=== PATIENT | male | born 1970 | race Caucasian/White ===

== ENCOUNTER 2016-05-30 20:10 | Inpatient (IN) | payer SELFPAY ==
[~2016-05-30] VITALS: Ht 185.4 cm; Wt 73.6 kg
--- NOTE | 2016-05-30 20:15 | NUR ---
PT REPORTS BEING FROM [facility]. PT STATES "I RAN OUT OF [employer] AND HAVE NO INSURANCE OR DOCTOR AT THIS TIME."
--- NOTE | 2016-05-30 20:16 | NUR ---
PILAR JOHNSON ATTEMPTED IV START X 3 WITHOUT SUCCESS.
[2016-05-30] MEDS ORDERED: INSU100V2 SC (21:01)
[2016-05-30] MEDS ORDERED: INSU100V32 SC (21:03)
[2016-05-30] MEDS ORDERED: RANI150T15 PO (21:04)
[2016-05-30] MEDS ORDERED: SODIUM CHLORIDE FLUSH 10 ML SYR IV PRN (21:10)
[2016-05-30] MEDS ORDERED: SODIUM CHLORIDE FLUSH 3 ML SYR IV PRN (21:10)
[2016-05-30 21:45] LABS: BASOPHILS % (AUTO) 1 % (0-2); EOSINOPHILS # (AUTO) 0.1 10^3uL; EOSINOPHILS % (AUTO) 1 % (0-4); LYMPHOCYTES # (AUTO) 2.7 X10^3; MEAN CORPUSCULAR HEMOGLOBIN 29.7 PG (26.0-34.0); MEAN CORPUSCULAR VOLUME 83 FL (80-100); MEAN PLATELET VOLUME 9.7 FL (6.0-9.5); MONOCYTES # (AUTO) 0.7 X10^3; MONOCYTES % (AUTO) 5 % (3-11); NEUTROPHILS # (AUTO) 9.1 X10^3; NEUTROPHILS % (AUTO) 72 % (51-67); PLATELET COUNT 397 10^3uL (150-450); WHITE BLOOD COUNT 12.71 10^3uL (4.0-11.0)
[2016-05-30 21:49] LABS: MEAN CORPUSCULAR HGB CONC 35.9 g/dL (31.0-37.0)
[2016-05-30 21:51] LABS: ALBUMIN 4.5 g/dL (3.4-5.0); ANION GAP 25.2 MEQ/L (3-15); CALCULATED IONIZED CALCIUM 4.2 mg/dL (3.8-4.6); TOTAL PROTEIN 8.1 g/dL (6.4-8.5)
[2016-05-30] MEDS ORDERED: HYDROmorphone 1 MG/ML (DILAUDID) SYRINGE IV ONE (22:15)
[2016-05-30] MEDS ORDERED: ONDANSETRON 2 MG/ML (Z0FRAN) 2 ML VIAL IV ONE (22:15)
[2016-05-30 22:35] LABS: ABG OXYGEN SATURATION 98 % (95-98); ABG PCO2 29 mmHg (35-45); ABG PH 7.44 (7.35-7.45); ABG PO2 99 mmHg (80-105)
[2016-05-30] MEDS ORDERED: INSULIN REGULAR 1 UNIT/0.01 ML DOSE IV ONE (22:40)
--- NOTE | 2016-05-30 22:47 | History and Physical (E) ---
History & Physical PCP: None CC Hyperglycemia HPI Mr. Fry is a 46 year old, known diabetic who has presented to the ED tonight reporting that he is "in DKA." He has had diarrhea for 3 days and started nausea and vomiting today. The patient stated to the ED, that he ran out of his lantus about 2 days ago, however he has had his humalog. He did run out of testing strips this afternoon. He recently relocated from [place], [place] and is living her now. He came here because he has a friend here. He has lived here before. He had [employer] insurance that covered his insulin. He does not have a regular physician and endorses being without health insurance. He told the ED physician that he gets his medications refilled during ED visits. He states he has not been able to afford his insulin. Upon arrival to the floor, he is not in any distress. Discussed care and plan. Questions answered. PMH Type I DM CKD Prostate cancer Nephrolithiasis HTN--not treated currently DLD--not treated currently Anxiety--previously treated with clonazepam PSH Pyloric stenosis repair as a . Prostatectomy in [place] Dr. Fernandes. Ureteral stents placed. ALLERGIES: Codeine Pregabalin Please see list at end of report. HOME MEDICATIONS: Ranitidine Lantus--30 units BID Humalog--15 units with meals. Please see list at end of report. FH Parents--Father with CAD, HI in March, prostate cancer, and DM. Mother committed suicide about 6 years ago, psychiatric illness. Siblings--Brother with skin cancer. Children--Daughter who is in poor health with lupus and scoliosis. Son has heart issues and lung issues associated with pectus excavatum. SH Tobaccoism--Smoker for about 30 years. Alcohol use--None. Drug use--Marijuana occasionally. CODE STATUS Full code. ROS CONSTITUTION: Denies weight loss or gain. Endorses chills. HEENT: No change in vision or hearing. Endorses sore throat from emesis. CV: No chest pain or palpitations. PULM: No new cough, shortness of breath, difficulty breathing. GI: Nausea and vomiting per HPI. No blood in stool. : No dysuria. No blood in urine. MS: No new muscle or joint aches and pains. NEURO: Endorses peripheral neuropathy for years. INTEG: Chronic tinea infection to abdomen. ENDO: No heat or cold intolerance. Endorses polydipsia and polyuria over last 1- 2 days. HEME/LYMPH: No easy bruising or bleeding. No swollen glands. PSYCH: Endorses chronic anxiety. OBJECTIVE Vital Signs Date Time Temp Pulse Resp B/P Pulse Ox O2 Delivery O2 Flow Rate FiO2 05/30/16 20:22 98.9 124 18 122/85 99 Room Air GEN: Awake and alert. No distress. HEENT: Normocephalic. MMM in oral cavity. CV: Tachycardic rate. Regular rhythm. No murmurs appreciated. LUNGS: CTA B. NLR's. ABD: NBS. S/NTTP/ND. EXTR: No edema to lower extremities. NEURO: Speech clear. Moving all extremities without issue. LABS CBC BMP Last 24 Hrs 05/30/16 21:20 Laboratory Results Past 48 Hrs 05/30/16 21:20: Alanine Aminotransferase (ALT/SGPT) 178H, Albumin 4.5, Albumin/Globulin Ratio 1.250, Alkaline Phosphatase 221H, Anion Gap 25.2H, Aspartate Amino Transf (AST/ SGOT) 88H, BUN/Creatinine Ratio 22H, Basophils # (Auto) 0.1, Basophils (%) (Auto ) 1, Blood Urea Nitrogen 24H, Calcium Level 10.3, Calcium/Ionized Calcium Ratio 4.2, Calculated Osmolality 279L, Carbon Dioxide Level 17L, Chloride Level 93L, Creatinine 1.10, Eosinophils # (Auto) 0.1, Eosinophils (%) (Auto) 1, Estimat Glomerular Filtration Rate 87.2, Estimated GFR (Non- 72.1, Glucose Level 522*H, Hematocrit 45.10, Hemoglobin 16.2, Hemoglobin A1c 12.1H, Lymphocytes # (Auto) 2.7, Lymphocytes (%) (Auto) 21, Mean Corpuscular Hemoglobin 29.7, Mean Corpuscular Hemoglobin Concent 35.9, Mean Corpuscular Volume 83, Mean Platelet Volume 9.7H, Monocytes # (Auto) 0.7, Monocytes (%) ( Auto) 5, Neutrophils # (Auto) 9.1, Neutrophils (%) (Auto) 72H, Platelet Count 397, Potassium Level 5.7H, Red Blood Count 5.45, Red Cell Distribution Width 12.6, Sodium Level 130L, Total Bilirubin 1.1H, Total Protein 8.1, White Blood Count 12.71H 05/30/16 22:22: Shoaib Test pos, Arterial Blood Base Excess -4.0L, Arterial Blood HCO3 20.0L, Arterial Blood Oxygen Saturation 98, Arterial Blood Partial Pressure CO2 29L, Arterial Blood Partial Pressure O2 99, Arterial Blood Total CO2 21.0L, Arterial Blood pH 7.44, Blood Gas Puncture Site lra, FiO2 % 21.0 ASSESSMENT/PLAN SIRS Met with tachycardia and leukocytosis. Due to hyperglycemia. Hyperglycemia Due to running out of his insulin. Will provide an initial dose of IV insulin. Will monitor sugars closely and treat with SSI. IDDM Patient has been on lantus and meal time insulin. A1c pending. Monitoring accu cheks. Providing aggressive insulin. CKD Reportedly stage 3. Creatinine is normal here, monitor. HTN Has previously been on enalapril, not treated currently. Will restart. DLD Has previously been on a statin, not treated currently. Will restart. DVT proph Enoxaparin. FEN Diabetic diet as tolerated. Electrolytes--Mild hyperkalemia, pseudohyponatremia. Providing fluids, treating hyperglycemia. NS boluses being provided. Code status Full code. Dispo Inpatient for now. Treating sugars. Starting SUDHAKAR and statin therapy. Will look for resources on Thursday. Allergies/Home Medications Allergies: Coded Allergies: codeine (Verified Allergy, Unknown, Hives, 05/30/16) pregabalin (Verified Allergy, Unknown, Anaphylaxis, 05/30/16) Reported Home Medications Scheduled Insulin Glargine,Hum.rec.anlog (Lantus) 100 UNIT SC BID (Reported) Insulin Lispro (Humalog) 100 UNIT SC AC (Reported) Ranitidine HCl (Zantac) 150 MG PO UD (Reported) Copies to: End of Report . JONG MALDONADO MD May 30, 2016 22:47
[2016-05-30] MEDS ORDERED: GLUCAGON EMERGENCY 1 MG/KIT IM PRN (22:50)
[2016-05-30] MEDS ORDERED: ONDANSETRON 2 MG/ML (Z0FRAN) 2 ML VIAL IV PRN (22:50)
[2016-05-30] MEDS ORDERED: DEXTROSE 50% 25 GM/50 ML SYRINGE IV PRN (22:50)
[2016-05-30] MEDS ORDERED: DEXTROSE ORAL GEL (GLUTOSE 40%) 15 GM TUBE PO PRN (22:50)
[2016-05-30] MEDS ORDERED: ACETAMINOPHEN 325 MG TAB (TYLENOL) PO PRN (22:50)
--- NOTE | 2016-05-30 23:25 | NUR ---
Pt arrives to 318 via cart from ED. Ambulates independently to weight chair and bed. See admission assessment for further details.
[2016-05-30] MEDS: INSULIN LISPRO 1 UNIT/0.01 ML (HUMALOG) DOSE SC SCH (23:30)
[2016-05-30 23:33] LABS: BILIRUBIN,URINE Negative (Negative); CLARITY,URINE Clear; COLOR,URINE Yellow; GLUCOSE, URINE (UA) 2+ (Negative); LEUKOCYTE ESTERASE ,URINE Negative (Negative); PH,URINE 5.5 (5.0 - 8.0); UROBILINOGEN,URINE 0.2 mg/dL (0.2-1.0)
--- NOTE | 2016-05-30 23:45 | NUR ---
Dr Orozco in room; explains plan of care to patient. Pt denies n/v, requests food. Will provide.
[2016-05-31] VITALS: BP 110/79
[2016-05-31] MEDS: FAMOTIDINE 20 MG (PEPCID) TABLET PO SCH ×3 (00:11→21:10)
[2016-05-31 00:30] VITALS: BP 110/79
[2016-05-31] MEDS: INSULIN LISPRO 1 UNIT/0.01 ML (HUMALOG) DOSE SC SCH ×11 (00:33→21:00)
--- NOTE | 2016-05-31 04:39 | NUR ---
Pt c/o back pain. Offered pt PRN tylenol; pt states "no, that won't work." Informed pt that I would let the doctor know and see what we could do. Dr Orozco notified via text message.
--- NOTE | 2016-05-31 05:05 | NUR ---
Dr Orozco responds; orders received for lidoderm patch to back daily and tramadol PO q4h prn pain.
[2016-05-31] MEDS: LIDOCAINE (LIDODERM) 5% PATCH TOP SCH ×2 (05:10→08:48)
[2016-05-31] MEDS ORDERED: LIDOCAINE (LIDODERM) 5% PATCH TOP ONE (05:14)
--- NOTE | 2016-05-31 05:20 | NUR ---
Told pt that Dr had ordered a lidoderm patch and tramadol for his pain. Pt states "Tramadol doesn't do anything." Encouraged pt to try both topical lidoderm patch and oral tramadol to see if that would help alleviate his pain. Pt states "It's not muscle pain; it's nerve pain. I don't want to put that lidocaine on my body. They gave me dilaudid down in the ER and that helped for 4-5 hours." Pt refuses both medications and says "I've been dealing with this for years. I'll just hurt." Dr Orozco aware.
[2016-05-31 06:14] LABS: BASOPHILS % (AUTO) 1 % (0-2); EOSINOPHILS # (AUTO) 0.5 10^3uL; EOSINOPHILS % (AUTO) 5 % (0-4); LYMPHOCYTES # (AUTO) 3.9 X10^3; MEAN CORPUSCULAR HEMOGLOBIN 29.9 PG (26.0-34.0); MEAN CORPUSCULAR HGB CONC 35.3 g/dL (31.0-37.0); MEAN CORPUSCULAR VOLUME 85 FL (80-100); MEAN PLATELET VOLUME 9.3 FL (6.0-9.5); MONOCYTES # (AUTO) 0.9 X10^3; MONOCYTES % (AUTO) 8 % (3-11); NEUTROPHILS # (AUTO) 5.7 X10^3; NEUTROPHILS % (AUTO) 51 % (51-67); PLATELET COUNT 352 10^3uL (150-450); WHITE BLOOD COUNT 11.22 10^3uL (4.0-11.0)
[2016-05-31 06:33] LABS: ALBUMIN 3.1 g/dL (3.4-5.0); ANION GAP 11.9 MEQ/L (3-15); CALCULATED IONIZED CALCIUM 4.2 mg/dL (3.8-4.6); TOTAL PROTEIN 5.9 g/dL (6.4-8.5)
--- NOTE | 2016-05-31 06:42 | NUR ---
Accuchecks have fluctuated throughout the night. Currently have had 3 hourly checks <200; see accucheck intervention. Rescheduled intervention to [facility] per Dr Orozco prior order.
[2016-05-31 08:17] VITALS: BP 94/59
--- NOTE | 2016-05-31 08:43 | Progress Note-A/P (E) ---
Progress Note Subjective: Patient is resting in bed. I was contacted overnight multiple times with the patient requesting narcotics for his back pain. I did order lidoderm, tramadol and acetaminophen. The patient declined all of these because they do not work. This morning when I see him we have a long discussion regarding the appropriateness of narcotic use in chronic back pain. The patient states he has been living with back pain since 2006, and the only thing that has ever given him relief is oxycodone 10-20 mg q 4 hours. I discussed with him that I was not comfortable prescribing this amount of narcotic for a chronic condition and that he is not currently being treated for this in the outpatient setting. The patient does endorse that he will not be able to afford any narcotics as an outpatient. I informed the patient that there will be no assistance in obtaining a controlled substance. He verbalizes understanding of this. I asked the patient if he has tried any muscle relaxers or physical therapy. He reports neither of these help. He states he has tried gabapentin, which does not help. He states that heating pads do not help and neither does lidoderm. He states that he is frustrated because we are "keeping him here" and won't help him with his pain. I explained to him that he does not have to stay here, and that his sugars have improved and he could be discharged if he would like. He stated that he wanted to stay to discuss medication help with CC. Discussed with the patient that I have offered him multiple options to treat his pain, but he is not interested in trying them because he feels that oxycodone is the only medication that will help him. The nursing staff states the patient also refused his statin, lisinopril and enoxaparin. I asked him about this, he did not know what the lisinopril was for , we discussed the indication. He agrees to take the statin. However, he refuses the enoxaparin. Discussed further care plan. Objective: Current Medications Dextrose 15 gm Q15M PRN PO Dextrose PRN IV Glucagon 1 mg PRN IM Insulin Human Lispro QIDACHS SC Acetaminophen 650 mg Q6H PRN PO Ondansetron HCl 4 mg Q6H PRN IV Enoxaparin Sodium 40 mg DAILY SC Lisinopril 10 mg DAILY PO Famotidine 20 mg BID PO Atorvastatin 40 mg HS PO Tramadol HCl 100 mg Q4H PRN PO Lidocaine 1 ea DAILY TOP Vital Signs Date Time Temp Pulse Resp B/P Pulse Ox O2 Delivery O2 Flow Rate FiO2 05/31/16 08:17 97.8 81 18 94/59 98 05/31/16 00:30 Room air I & O Past 24 hrs 05/31/16 07:00 Intake Total 690 ml Output Total 0 ml Balance 690 ml Intake Oral 690 ml Output Urine Total 0 ml Physical Exam General--Awake and alert. No distress. HEENT--Normocephalic. MMM in oral cavity. Lungs--CTA B. NLR's. Heart--RRR. No murmurs. Abdomen--Normal bowel sounds. Soft. Nondistended. Nontender. Extremities--No edema to lower extremities. Past 24 hour Lab Results 05/30/16 21:20 05/31/16 05:30 Laboratory Results Past 24 Hrs 05/30/16 21:20: Alanine Aminotransferase (ALT/SGPT) 178, Albumin 4.5, Albumin/Globulin Ratio 1.250, Alkaline Phosphatase 221, Anion Gap 25.2, Aspartate Amino Transf (AST/ SGOT) 88, BUN/Creatinine Ratio 22, Basophils # (Auto) 0.1, Basophils (%) (Auto) 1, Blood Urea Nitrogen 24, Calcium Level 10.3, Calcium/Ionized Calcium Ratio 4.2 , Calculated Osmolality 279, Carbon Dioxide Level 17, Chloride Level 93, Creatinine 1.10, Eosinophils # (Auto) 0.1, Eosinophils (%) (Auto) 1, Estimat Glomerular Filtration Rate 87.2, Estimated GFR (Non- 72.1, Glucose Level 522, Hematocrit 45.10, Hemoglobin 16.2, Hemoglobin A1c 12.1, Lymphocytes # (Auto) 2.7, Lymphocytes (%) (Auto) 21, Mean Corpuscular Hemoglobin 29.7, Mean Corpuscular Hemoglobin Concent 35.9, Mean Corpuscular Volume 83, Mean Platelet Volume 9.7, Monocytes # (Auto) 0.7, Monocytes (%) (Auto ) 5, Neutrophils # (Auto) 9.1, Neutrophils (%) (Auto) 72, Platelet Count 397, Potassium Level 5.7, Red Blood Count 5.45, Red Cell Distribution Width 12.6, Sodium Level 130, Thyroid Stimulating Hormone (TSH) 0.61, Total Bilirubin 1.1, Total Protein 8.1, White Blood Count 12.71 05/30/16 22:22: Shoaib Test pos, Arterial Blood Base Excess -4.0, Arterial Blood HCO3 20.0, Arterial Blood Oxygen Saturation 98, Arterial Blood Partial Pressure CO2 29, Arterial Blood Partial Pressure O2 99, Arterial Blood Total CO2 21.0, Arterial Blood pH 7.44, Blood Gas Puncture Site lra, FiO2 % 21.0 05/30/16 23:20: Urine Bilirubin Negative, Urine Blood Negative, Urine Clarity Clear, Urine Collection Type Clean catch, Urine Color Yellow, Urine Glucose (UA) 2+, Urine Ketones 2+, Urine Leukocyte Esterase Negative, Urine Nitrite Negative, Urine Protein Negative, Urine Specific [place] 1.020, Urine Urobilinogen 0.2, Urine pH 5.5 05/31/16 05:30: Alanine Aminotransferase (ALT/SGPT) 135, Albumin 3.1, Albumin/Globulin Ratio 1.107, Alkaline Phosphatase 138, Anion Gap 11.9, Aspartate Amino Transf (AST/ SGOT) 68, BUN/Creatinine Ratio 26, Basophils # (Auto) 0.1, Basophils (%) (Auto) 1, Blood Urea Nitrogen 25, Calcium Level 8.6, Calcium/Ionized Calcium Ratio 4.2 , Calculated Osmolality 272, Carbon Dioxide Level 26, Chloride Level 104, Creatinine 0.95, Eosinophils # (Auto) 0.5, Eosinophils (%) (Auto) 5, Estimat Glomerular Filtration Rate 103.3, Estimated GFR (Non- 85.4, Glucose Level 126, Hematocrit 37.40, Hemoglobin 13.2, Lymphocytes # (Auto) 3.9, Lymphocytes (%) (Auto) 35, Mean Corpuscular Hemoglobin 29.9, Mean Corpuscular Hemoglobin Concent 35.3, Mean Corpuscular Volume 85, Mean Platelet Volume 9.3, Monocytes # (Auto) 0.9, Monocytes (%) (Auto) 8, Neutrophils # (Auto) 5.7, Neutrophils (%) (Auto) 51, Platelet Count 352, Potassium Level 3.9, Red Blood Count 4.41, Red Cell Distribution Width 12.7, Sodium Level 138, Total Bilirubin 0.5, Total Protein 5.9, White Blood Count 11.22 Assessment/Plan SIRS Met with tachycardia and leukocytosis. Due to hyperglycemia. Hyperglycemia Due to running out of his lantus. Providing insulin and monitoring accu cheks ([phone]). IDDM Patient has been on lantus and meal time insulin however ran out of lantus. Will restart home dose of 30units BID. A1c 12.1. Monitoring accu cheks. Providing aggressive insulin. CKD Reportedly stage 3. Creatinine is normal here, monitor. Avoid nephrotoxic agents (ibuprofen). HTN Has previously been on enalapril, not treated currently. Starting lisinopril. DLD Has previously been on a statin, not treated currently. Staring high intensity atorvastatin. DVT proph Enoxaparin. FEN Diabetic diet as tolerated. Electrolytes--Mild hyperkalemia, pseudohyponatremia. Providing fluids, treating hyperglycemia. NS boluses being provided. Code status Full code. Dispo Inpatient for now. Monitoring sugars. Started SUDHAKAR and statin therapy. Will look for resources on Thursday. JONG MALDONADO MD May 31, 2016 08:43
[2016-05-31] MEDS: lisINopril 10 MG (PRINIVIL) TABLET PO SCH (08:48)
[2016-05-31] MEDS: ENOXAPARIN 40 MG/0.4 ML (LOVENOX) SYR SC SCH (08:48)
--- NOTE | 2016-05-31 08:48 | NUR ---
Pt refuses Lisinopril, Lovenox, and Lidoderm at this time.
[2016-05-31] MEDS ORDERED: NS FLUSH 3 ML PRN IV (09:20)
[2016-05-31] MEDS ORDERED: NS FLUSH 10 ML PRN IV (09:20)
--- NOTE | 2016-05-31 09:30 | NUR ---
Pt c/o pain in his back. He refuses Tylenol, Ultram, or Lidocaine patch. States, " I have degenerative disk disease." He reports on previous admissions he has had Percocet 10mg [id number] for pain.
[2016-05-31] MEDS ORDERED: INSULIN GLARGINE 1 UNIT/0.01ML (LANTUS) DOSE SC ONE (10:20)
--- NOTE | 2016-05-31 10:48 | NUR ---
BS 425 Dr. Orozco notified. Okay to give 12 units of insulin per sliding scale and to give 30 units of Lantus.
--- NOTE | 2016-05-31 11:40 | NUR ---
FSBS 457. Dr. Orozco notified. Give 12 units Humolog
--- NOTE | 2016-05-31 11:48 | NUR ---
Pt refused insulin at this time.
--- NOTE | 2016-05-31 14:45 | NUR ---
FSBS 313 10units Humolog SQ given. Pt asleep in bed with arm over his eyes. Awakes to name. Saline lock withoiut redness and edema.
[2016-05-31 15:57] VITALS: BP 119/68
--- NOTE | 2016-05-31 20:00 | NUR ---
Resting in bed. States has chronic back pain and the tramadol does not relieve his pain. States that he spoke with Dr about this already. Drinking diet pop. No needs voiced at this time.
[2016-05-31] MEDS ORDERED: SIMvastatin 20 MG (ZOCOR) TAB PO SCH (21:00)
[2016-05-31] MEDS ORDERED: ATORVASTATIN 40 MG (LIPITOR) TABLET PO SCH (21:00)
--- NOTE | 2016-05-31 21:00 | NUR ---
Accu check 264. Insulin administered as ordered. Wanting more food, which was provided to patient by warehouse guard. 2310-Patient states he is hot and thinks is blood sugar is low. Wanted to have it checked. Accu check 302. Sliding Scale administered as ordered. Patient did take Tramadol 100 mg last evening for back pain.
[2016-05-31] MEDS: INSULIN GLARGINE 1 UNIT/0.01ML (LANTUS) DOSE SC SCH (21:27)
[2016-06-01 00:09] VITALS: BP 133/89
[2016-06-01] MEDS: INSULIN LISPRO 1 UNIT/0.01 ML (HUMALOG) DOSE SC SCH ×7 (06:22→21:00)
--- NOTE | 2016-06-01 06:30 | NUR ---
Patient rested at long intervals tonight. Refuses tramadol as he says it does not work. Accu Check 193mg/dl. Sliding scale administered as ordered. Drinking coffee this morning. No other needs at this time.
[2016-06-01 06:33] LABS: BASOPHILS % (AUTO) 1 % (0-2); EOSINOPHILS # (AUTO) 0.5 10^3uL; EOSINOPHILS % (AUTO) 6 % (0-4); LYMPHOCYTES # (AUTO) 2.5 X10^3; MEAN CORPUSCULAR HEMOGLOBIN 29.5 PG (26.0-34.0); MEAN CORPUSCULAR HGB CONC 34.6 g/dL (31.0-37.0); MEAN CORPUSCULAR VOLUME 85 FL (80-100); MEAN PLATELET VOLUME 9.6 FL (6.0-9.5); MONOCYTES # (AUTO) 0.5 X10^3; MONOCYTES % (AUTO) 7 % (3-11); NEUTROPHILS # (AUTO) 3.8 X10^3; NEUTROPHILS % (AUTO) 51 % (51-67); PLATELET COUNT 260 10^3uL (150-450); WHITE BLOOD COUNT 7.37 10^3uL (4.0-11.0)
[2016-06-01 07:46] VITALS: BP 117/74
[2016-06-01 07:50] LABS: ALKALINE PHOSPHATASE 151 U/L (38-126); MAGNESIUM* 1.9 mg/dL (1.6-2.3); PHOSPHORUS 3.7 mg/dL (2.4-4.9)
[2016-06-01 07:51] LABS: ALBUMIN 3.4 g/dL (3.4-5.0); TOTAL PROTEIN 6.3 g/dL (6.4-8.5)
--- NOTE | 2016-06-01 08:30 | NUR ---
Pt sitting up in bed at this time. Skin WDI, resprs nonlabored, even on RA. Pt expresses frustration that he did not get biscuits and gravy for breakfast. Informed pt that our kitchen does not have them today. Pt rates his chronic back pain 11/24. When offered Lido patches, pt states "that won't help". Refused this and Lovenox injections. Denies other needs. SL intact.
[2016-06-01] MEDS: FAMOTIDINE 20 MG (PEPCID) TABLET PO SCH ×2 (08:33→21:12)
[2016-06-01] MEDS: lisINopril 10 MG (PRINIVIL) TABLET PO SCH (08:33)
[2016-06-01] MEDS: INSULIN GLARGINE 1 UNIT/0.01ML (LANTUS) DOSE SC SCH ×2 (08:34→21:12)
[2016-06-01] MEDS: ENOXAPARIN 40 MG/0.4 ML (LOVENOX) SYR SC SCH (08:36)
[2016-06-01] MEDS: LIDOCAINE (LIDODERM) 5% PATCH TOP SCH (08:37)
[2016-06-01] MEDS ORDERED: NS FLUSH 3 ML DAILY IV SCH (09:00)
--- NOTE | 2016-06-01 10:35 | Progress Note-A/P (E) ---
Progress Note Subjective: Patient is resting quietly in bed. He awakens easily. He reports pain persisting. Discussed current findings, including his blood sugars being elevated. Patient is agreeable to having his sugars treated hourly until it is below 200. Discussed liver studies. Patient states he has had elevated enzymes before. Discussed work up. Patient is requesting gabapentin for his pain. He states that he has taken this before at 100mg BID. Also offered duloxetine, which he states caused him to be "a zombie." He declined the duloxetine. Also offered topiramate, which he also declined. Discussed discharge planning. Questions answered. Objective: Current Medications Dextrose 15 gm Q15M PRN PO Dextrose PRN IV Glucagon 1 mg PRN IM Insulin Human Lispro QIDACHS SC Acetaminophen 650 mg Q6H PRN PO Ondansetron HCl 4 mg Q6H PRN IV Enoxaparin Sodium 40 mg DAILY SC Lisinopril 10 mg DAILY PO Famotidine 20 mg BID PO Atorvastatin 40 mg HS PO Tramadol HCl 100 mg Q4H PRN PO Lidocaine 1 ea DAILY TOP Vital Signs Date Time Temp Pulse Resp B/P Pulse Ox O2 Delivery O2 Flow Rate FiO2 06/01/16 07:46 97.2 65 20 117/74 98 Room air I & O Past 24 hrs 06/01/16 07:00 Intake Total 5796 ml Output Total 5200 ml Balance 596 ml Intake Oral 3212 ml IV Total 2584 ml Output Urine Total 5200 ml Physical Exam General--Awake and alert. No distress. HEENT--Normocephalic. MMM in oral cavity. Lungs--CTA B. NLR's. Heart--RRR. No murmurs. Abdomen--Normal bowel sounds. No hepatomegaly appreciated. Soft. Nondistended. Nontender. Extremities--No edema to lower extremities. Past 24 hour Lab Results 06/01/16 05:45 Laboratory Results Past 24 Hrs 06/01/16 05:45: Alanine Aminotransferase (ALT/SGPT) 212, Albumin 3.4, Alkaline Phosphatase 151, Anion Gap , Aspartate Amino Transf (AST/SGOT) 223, Basophils # (Auto) 0.1, Basophils (%) (Auto) 1, Blood Urea Nitrogen 21, Calcium Level 9.6, Carbon Dioxide Level 25, Chloride Level 99, Conjugated Bilirubin 0.0, Creatinine 0.81, Eosinophils # (Auto) 0.5, Eosinophils (%) (Auto) 6, Estimat Glomerular Filtration Rate 124.1, Estimated GFR (Non- 102.6, Glucose Level 224, Hematocrit 39.00, Hemoglobin 13.5, Lymphocytes # (Auto) 2.5, Lymphocytes (% ) (Auto) 35, Magnesium Level 1.9, Mean Corpuscular Hemoglobin 29.5, Mean Corpuscular Hemoglobin Concent 34.6, Mean Corpuscular Volume 85, Mean Platelet Volume 9.6, Monocytes # (Auto) 0.5, Monocytes (%) (Auto) 7, Neutrophils # (Auto ) 3.8, Neutrophils (%) (Auto) 51, Phosphorus Level 3.7, Platelet Count 260, Potassium Level 3.9, Red Blood Count 4.58, Red Cell Distribution Width 12.3, Sodium Level 135, Total Bilirubin 0.6, Total Protein 6.3, White Blood Count 7.37 Assessment/Plan SIRS Met with tachycardia and leukocytosis, both resolved. Due to hyperglycemia. Hyperglycemia Due to running out of his lantus. Providing insulin and monitoring accu cheks ([phone]). IDDM Patient has been on lantus and meal time insulin however ran out of lantus. Restarted home dose of 30units BID. A1c 12.1. Monitoring accu cheks. Providing aggressive insulin. Elevated LFT's Present on admission, however improving yesterday. Statin started yesterday, LFT's are much worse today. Will get hepatitis panel. Possibly related to statin use. Will obtain a u/s. Chronic pain Patient has been on a very aggressive pain medication regimen in the past and would like to restart that regimen (10-20mg oxycodone po q 4 hours). I have explained to him that I am not comfortable with that regimen. The patient will not be able to afford a prescription in the outpatient setting. Patient has been offered gabapentin, which he declined yesterday. Today he would like to try this. Offered topiramate and duloxetine today, he has declined both. Lidoderm is being offered daily he also declines this. CKD Reportedly stage 3. Creatinine is normal here, monitor. Avoid nephrotoxic agents (ibuprofen). HTN Has previously been on enalapril, not treated currently. Started lisinopril. DLD Has previously been on a statin, not treated currently. Started high intensity atorvastatin. DVT proph Enoxaparin. FEN Diabetic diet as tolerated. Electrolytes--Mild hyperkalemia, pseudohyponatremia. Providing fluids, treating hyperglycemia. NS boluses being provided. Code status Full code. Dispo Inpatient for now. Monitoring sugars. Started SUDHAKAR and statin therapy. LFT's elevated, will get abd u/s and hepatitis panel. Offered pain medications per above. Will start gabapentin. Will look for resources on Thursday. JONG MALDONADO MD Jun 01, 2016 10:35
[2016-06-01] MEDS: GABAPENTIN 100 MG (NEURONTIN) CAP PO SCH ×2 (10:56→21:12)
--- NOTE | 2016-06-01 11:01 | NUR ---
Verbal order from Dr Orozco to initiate Q1 accuchecks and treat with SSI until sugars are <200. 1030 BS: 297, 7u Humalog administered. Pt made NPO for abd US. Pt was very frustrated by this, worried that he wouldn't get lunch. Informed pt lunch would still be provided after the US was finished.
--- NOTE | 2016-06-01 12:08 | NUR ---
1130 sugar: 282. 7u SSI provided.
--- NOTE | 2016-06-01 13:02 | NUR ---
1130 sugar: 203. 2u SSI given per Dr Orozco's instruction since pt is NPO for abd US. Addendum: 06/01/16 at 1442 by Niki Luis RN CORRECTION: 1230 sugar, not 1130
--- NOTE | 2016-06-01 14:00 | NUR ---
1330 sugar: 137. Ernesto notified. Verbal order to stop Q1 accuchecks.
[2016-06-01 15:29] VITALS: BP 105/66
--- NOTE | 2016-06-01 16:02 | NUR ---
MED REC COMPLETE--current med list obtained from patient report.
--- NOTE | 2016-06-01 16:20 | Diagnostic Imaging Report ---
PROCEDURE: US abdomen complete. TECHNIQUE: Multiple real-time grayscale images were obtained over the abdomen in various projections. INDICATION: Elevated liver enzymes. COMPARISON: None. FINDINGS: Hepatomegaly is demonstrated. There is no focal intrahepatic abnormality. There is no intrahepatic biliary dilatation. The gallbladder appears somewhat contracted. There is no evidence of abnormal gallbladder wall thickening. There is no pericholecystic fluid or internal echoes to suggest stones or sludge. The common bile duct is normal in caliber. The visualized portions of the pancreas are unremarkable. The spleen measures up to 15 cm. Right kidney and left kidney are normal in length without obstruction or hydronephrosis. The visualized portion of the aorta and IVC are normal in caliber. No free fluid is evident. IMPRESSION: 1. Hepatosplenomegaly without focal intrahepatic abnormality. 2. No evidence of cholelithiasis or cholecystitis. 3. Kidneys are nonobstructed. 4. No ascites demonstrated. Dictated by: Dictated on workstation # [id number]
--- NOTE | 2016-06-01 17:55 | NUR ---
Pt resting in bed. Continues to request more food than what is provided with meal trays. Informed pt we cannot provide more food with his blood sugars where they are. Sugar free foods provided. Skin warm, dry, intact. Resprs nonlabored, even on RA. SL intact. Denies needs.
--- NOTE | 2016-06-01 20:00 | NUR ---
Resting in bed. Watching TV. Is wanting food. Reminded patient of elevated blood sugars and that he will continue to elevate his blood sugars, if he continues to eat more than is allowed to him per his diabetic diet that is ordered. Wanting sugar free ice cream and pop. Two sugar free ice cream given.
--- NOTE | 2016-06-01 20:30 | NUR ---
Accu Check 405, which was done per nurse aide, and reported to me. Approximately 5 minutes later, patient called nurse aide in his room, and stated that he was leaving. He stated that his blood sugar was elevated, that he needed his insulin and that he was wanting more food. Charge nurse notified , as I was with a patient. As I was walking to his room, Dr Orozco joined me and asked about the situation. She tried to reason with the patient, and had a long discussion with him. He still stated he was going home, to his cousins in [place]. In the meantime his cousin text'd him back and was not coming out in the inclement weather. Patient slammed phone down, said he was not going anywhere and that he was wanting his insulin and would stay. told nurse to administer 15 Units of sliding scale insulin now, which was given. Richard
[2016-06-01] MEDS ORDERED: INSULIN LISPRO 1 UNIT/0.01 ML (HUMALOG) DOSE SC ONE (21:00)
--- NOTE | 2016-06-01 22:30 | NUR ---
Wanting more food. Diet ice cream given. Pudding given x 2. Decaf Coffee, large cup given with several creamers per request. Watching TV.
[2016-06-01 23:35] VITALS: BP 126/81
[2016-06-02 00:07] VITALS: BP 126/81
--- NOTE | 2016-06-02 00:30 | NUR ---
Accu check 203. Done per patient request. Patient wanting more food. Given sugar free pudding and sugar free ice cream. Fresh ice water given. Patient is content at this moment.
--- NOTE | 2016-06-02 03:20 | NUR ---
Rests with eyes closed. Respirations even and non-labored.
--- NOTE | 2016-06-02 03:30 | NUR ---
Patient called and is wanting more food. Reminded him that he has eaten numerous food items, and that breakfast would be here early this morning. He started to get dressed and stated that he was leaving. Patient told nurse that he wanted another sand which, which I did not have at the time. Fly Worker notified of patients intent per May JOHNSON. May also notified Dr Orozco. Tarsha JOHNSON discussed options with patient and he still wanted to go home. Asked me to remove IV and that was done without difficulty. Stated he had an apartment across [facility], he was going to walk there in the rain. Two pieces of pizza given to patient, and he is eating one as he is talking with Tarsha JOHNSONjunior programmer analyst.
--- NOTE | 2016-06-02 03:35 | NUR ---
Patient given one more chance to stay and talk with Dr and social work in the morning. Patient dressed and wanting to leave. Patient signed AMA paperwork, witnessed by Josephine Dickerson RN, and Arnol Garcia RN. Patient escorted out the ED entrance by Tarsha JOHNSON and May MIXON.
[2016-06-02] MEDS ORDERED: INSULIN LISPRO 1 UNIT/0.01 ML (HUMALOG) DOSE SC SCH (07:30)
--- NOTE | 2016-06-02 08:38 | Discharge Summary (E) ---
Discharge Summary (A) Admit Date/Time May 30, 2016 at 22:30 Discharge Date/Time Jun 02, 2016 at 03:45 Admitting Provider Brianna Maldonado MD Primary Care Provider Attending Provider Brianna Maldonado MD Consulting Provider Admission Diagnosis SIRS Hyperglycemia IDDM CKD History and Present Illness Mr. Fry is a 46 year old, known diabetic who has presented to the ED tonight reporting that he is "in DKA." He has had diarrhea for 3 days and started nausea and vomiting today. The patient stated to the ED, that he ran out of his lantus about 2 days ago, however he has had his humalog. He did run out of testing strips this afternoon. He recently relocated from [place], [place] and is living her now. He came here because he has a friend here. He has lived here before. He had [employer] insurance that covered his insulin. He does not have a regular physician and endorses being without health insurance. He told the ED physician that he gets his medications refilled during ED visits. He states he has not been able to afford his insulin. Upon arrival to the floor, he is not in any distress. Discussed care and plan. Questions answered. Hospital Course and Treatment SIRS Met with tachycardia and leukocytosis, both resolved. Due to hyperglycemia. Hyperglycemia Due to running out of his lantus. Providing insulin and monitoring accu cheks ([id number]). IDDM Patient has been on lantus and meal time insulin however ran out of lantus. Restarted home dose of 30units BID. A1c 12.1. Monitoring accu cheks. Providing aggressive insulin. Elevated LFT's Present on admission, however improving yesterday. Statin started yesterday, LFT's are much worse today. Will get hepatitis panel. Possibly related to statin use. Will obtain a u/s. Chronic pain Patient has been on a very aggressive pain medication regimen in the past and would like to restart that regimen (10-20mg oxycodone po q 4 hours). I have explained to him that I am not comfortable with that regimen. The patient will not be able to afford a prescription in the outpatient setting. Patient has been offered gabapentin, which he declined yesterday. Today he would like to try this. Offered topiramate and duloxetine today, he has declined both. Lidoderm is being offered daily he also declines this. CKD Reportedly stage 3. Creatinine is normal here, monitor. Avoid nephrotoxic agents (ibuprofen). HTN Has previously been on enalapril, not treated currently. Started lisinopril. DLD Has previously been on a statin, not treated currently. Started high intensity atorvastatin. DVT proph Enoxaparin. FEN Diabetic diet as tolerated. Electrolytes--Mild hyperkalemia, pseudohyponatremia. Providing fluids, treating hyperglycemia. NS boluses being provided. Code status Full code. Dispo Patient LISA'd on 07.31.16. Radiology/Laboratory Data Laboratory Results Past 5 Days 05/30/16 21:20: Alanine Aminotransferase (ALT/SGPT) 178H, Albumin 4.5, Albumin/Globulin Ratio 1.250, Alkaline Phosphatase 221H, Anion Gap 25.2H, Aspartate Amino Transf (AST/ SGOT) 88H, BUN/Creatinine Ratio 22H, Basophils # (Auto) 0.1, Basophils (%) (Auto ) 1, Blood Urea Nitrogen 24H, Calcium Level 10.3, Calcium/Ionized Calcium Ratio 4.2, Calculated Osmolality 279L, Carbon Dioxide Level 17L, Chloride Level 93L, Creatinine 1.10, Eosinophils # (Auto) 0.1, Eosinophils (%) (Auto) 1, Estimat Glomerular Filtration Rate 87.2, Estimated GFR (Non- 72.1, Glucose Level 522*H, Hematocrit 45.10, Hemoglobin 16.2, Hemoglobin A1c 12.1H, Lymphocytes # (Auto) 2.7, Lymphocytes (%) (Auto) 21, Mean Corpuscular Hemoglobin 29.7, Mean Corpuscular Hemoglobin Concent 35.9, Mean Corpuscular Volume 83, Mean Platelet Volume 9.7H, Monocytes # (Auto) 0.7, Monocytes (%) ( Auto) 5, Neutrophils # (Auto) 9.1, Neutrophils (%) (Auto) 72H, Platelet Count 397, Potassium Level 5.7H, Red Blood Count 5.45, Red Cell Distribution Width 12.6, Sodium Level 130L, Thyroid Stimulating Hormone (TSH) 0.61, Total Bilirubin 1.1H, Total Protein 8.1, White Blood Count 12.71H 05/30/16 22:22: Shoaib Test pos, Arterial Blood Base Excess -4.0L, Arterial Blood HCO3 20.0L, Arterial Blood Oxygen Saturation 98, Arterial Blood Partial Pressure CO2 29L, Arterial Blood Partial Pressure O2 99, Arterial Blood Total CO2 21.0L, Arterial Blood pH 7.44, Blood Gas Puncture Site lra, FiO2 % 21.0 05/30/16 23:20: Urine Bilirubin Negative, Urine Blood Negative, Urine Clarity Clear, Urine Collection Type Clean catch, Urine Color Yellow, Urine Glucose (UA) 2+H, Urine Ketones 2+H, Urine Leukocyte Esterase Negative, Urine Nitrite Negative, Urine Protein Negative, Urine Specific [place] 1.020, Urine Urobilinogen 0.2, Urine pH 5.5 05/31/16 05:30: Alanine Aminotransferase (ALT/SGPT) 135H, Albumin 3.1#L, Albumin/Globulin Ratio 1.107, Alkaline Phosphatase 138H, Anion Gap 11.9, Aspartate Amino Transf (AST/ SGOT) 68H, BUN/Creatinine Ratio 26H, Basophils # (Auto) 0.1, Basophils (%) (Auto ) 1, Blood Urea Nitrogen 25H, Calcium Level 8.6#L, Calcium/Ionized Calcium Ratio 4.2, Calculated Osmolality 272L, Carbon Dioxide Level 26, Chloride Level 104, Creatinine 0.95, Eosinophils # (Auto) 0.5, Eosinophils (%) (Auto) 5H, Estimat Glomerular Filtration Rate 103.3, Estimated GFR (Non- 85.4, Glucose Level 126#H, Hematocrit 37.40L, Hemoglobin 13.2L, Lymphocytes # ( Auto) 3.9, Lymphocytes (%) (Auto) 35, Mean Corpuscular Hemoglobin 29.9, Mean Corpuscular Hemoglobin Concent 35.3, Mean Corpuscular Volume 85, Mean Platelet Volume 9.3, Monocytes # (Auto) 0.9, Monocytes (%) (Auto) 8, Neutrophils # (Auto ) 5.7, Neutrophils (%) (Auto) 51, Platelet Count 352, Potassium Level 3.9#, Red Blood Count 4.41L, Red Cell Distribution Width 12.7, Sodium Level 138#, Total Bilirubin 0.5#, Total Protein 5.9L, White Blood Count 11.22H 06/01/16 05:45: Alanine Aminotransferase (ALT/SGPT) 212H, Albumin 3.4, Alkaline Phosphatase 151H , Anion Gap , Aspartate Amino Transf (AST/SGOT) 223H, Basophils # (Auto) 0.1, Basophils (%) (Auto) 1, Blood Urea Nitrogen 21H, Calcium Level 9.6, Carbon Dioxide Level 25, Chloride Level 99, Conjugated Bilirubin 0.0, Creatinine 0.81, Eosinophils # (Auto) 0.5, Eosinophils (%) (Auto) 6H, Estimat Glomerular Filtration Rate 124.1, Estimated GFR (Non- 102.6, Glucose Level 224#H, Hematocrit 39.00, Hemoglobin 13.5, Lymphocytes # (Auto) 2.5, Lymphocytes (%) (Auto) 35, Magnesium Level 1.9, Mean Corpuscular Hemoglobin 29.5, Mean Corpuscular Hemoglobin Concent 34.6, Mean Corpuscular Volume 85, Mean Platelet Volume 9.6H, Monocytes # (Auto) 0.5, Monocytes (%) (Auto) 7, Neutrophils # (Auto ) 3.8, Neutrophils (%) (Auto) 51, Phosphorus Level 3.7, Platelet Count 260, Potassium Level 3.9, Red Blood Count 4.58, Red Cell Distribution Width 12.3, Sodium Level 135, Total Bilirubin 0.6, Total Protein 6.3L, White Blood Count 7.37 1.15.17 Abd film IMPRESSION: 1. Hepatosplenomegaly without focal intrahepatic abnormality. 2. No evidence of cholelithiasis or cholecystitis. 3. Kidneys are nonobstructed. 4. No ascites demonstrated. Discharge Provider's Instructions AMA Discharge Diagnosis AMA SIRS Hyperglycemia IDDM Elevated LFT's Chronic pain Copies to: End of Report . BRIANNA MALDONADO MD Jun 02, 2016 08:38
== END 2016-06-02 03:45 | disposition left against medical advice (07) | DRG 638 ==
LOC: ED 20:13 → MED/SURG 22:30
PROVIDERS: ADMIT Family Medicine; ATTEND Family Medicine
DX: E10.65 Type 1 diabetes mellitus with hyperglycemia (principal); R65.10 Systemic inflammatory response syndrome (SIRS) of non-infectious origin without acute organ dysfunction; E10.22 Type 1 diabetes mellitus with diabetic chronic kidney disease; I12.9 Hypertensive chronic kidney disease with stage 1 through stage 4 chronic kidney disease, or unspecified chronic kidney disease; E78.5 Hyperlipidemia, unspecified; N18.3 Chronic kidney disease, stage 3 (moderate); E87.5 Hyperkalemia; G89.29 Other chronic pain; F17.200 Nicotine dependence, unspecified, uncomplicated; Z79.4 Long term (current) use of insulin; Z85.46 Personal history of malignant neoplasm of prostate
CPT/HCPCS: 36415; 76700; 80053; 80069; 80076; 81003; 82803; 83036; 83735; 84443; 85025; 96361; 96374; 96375; 99283; 99284